=== PATIENT | female | born 1945 | race Caucasian/White ===

== ENCOUNTER 2018-04-06 10:36 | Emergency (ER) | payer SELFPAY ==
[2018-04-06] MEDS ORDERED: traMADol TAB* 50 MG PO ONE (10:56)
--- NOTE | 2018-04-06 11:02 | ED ---
Lower Extremity - HPI Summary HPI Summary: This patient is a 72 year old F presenting to [facility] accompanied by her with a chief complaint of left hip pain since 04/03/18. She denies a fall, and endorses difficulty ambulating and insomnia secondary to pain. She denies pain radiation down her leg. She states that the pain started in her left knee then travelled to her hip, but now her knee is asymptomatic. Pt denies rx blood thinners. - History of Current Complaint Chief Complaint: EDExtremityLower Stated Complaint: LT SIDE HIP PAIN Time Seen by Provider: 04/06/18 10:46 Hx Obtained From: Patient Mechanism Of Injury: Unknown Onset/Duration: Still Present Severity Initially: Moderate Severity Currently: Moderate Pain Intensity: 8 Pain Scale Used: 0-10 Numeric Timing: Constant Location: Is Discrete @ - left hip Associated Signs And Symptoms: Positive: Knee Pain - resolved, sx started in left knee. Negative: Fever Aggravating Factor(s): Ambulation Alleviating Factor(s): Nothing Able to Bear Weight: Yes - Allergies/Home Medications Allergies/Adverse Reactions: Allergies Allergy/AdvReac Type Severity Reaction Status Date / Time No Known Allergies Allergy Verified 04/06/18 10:56 PMH/Surg Hx/FS Hx/Imm Hx Endocrine/Hematology History: Denies: Hx Sickle Cell Disease GI History: Denies: Hx Ileostomy Sensory History: Denies: Hx Legally Blind, Hx Deafness Opthamlomology History: Denies: Hx Legally Blind EENT History: Denies: Hx Deafness Psychiatric History: Denies: Hx Autism, Hx Schizophrenia Infectious Disease History: No Infectious Disease History: Reports: Traveled Outside the in Last 30 Days - lives in [facility] - Family History Known Family History: Negative: Blood Disorder - Social History Occupation: Retired Lives: With Family Alcohol Use: Occasionally Substance Use Type: Reports: None Smoking Status (MU): Never Smoked Tobacco Review of Systems Positive: Other - insomnia secondary to pain. Negative: Fever Positive: no symptoms reported Positive: Arthralgia - left hip, left knee (resolved), Decreased ROM - secondary to pain All Other Systems Reviewed And Are Negative: Yes Physical Exam - Summary Physical Exam Summary: Appearance: Well appearing, no pain distress Skin: warm, dry, reflects adequate perfusion Head/face: normal Eyes: EOMI, BERYL ENT: normal Neck: supple, non-tender Respiratory: CTA, breath sounds present Cardiovascular: RRR, pulses symmetrical Abdomen: non-tender, soft Bowel: present Musculoskeletal: Tenderness over lateral aspect of left hip, strength/ROM intact Neuro: normal, sensory motor intact, A&Ox3 Triage Information Reviewed: Yes Vital Signs On Initial Exam: Initial Vitals Temp Pulse Resp BP Pulse Ox 97.2 F 87 16 146/73 96 04/06/18 10:39 04/06/18 10:39 04/06/18 10:39 04/06/18 10:39 04/06/18 10:39 Vital Signs Reviewed: Yes Diagnostics - Vital Signs Vital Signs Temp Pulse Resp BP Pulse Ox 04/06/18 10:39 97.2 F 87 16 146/73 96 - Laboratory Lab Statement: Any lab studies that have been ordered have been reviewed, and results considered in the medical decision making process. - Radiology Pelvis XR Xray Interpretation: No Acute Changes Radiology Interpretation Completed By: Radiologist - No fx of pelvis or left hip is noted. Dr. Joiner has reviewed this report. - Ultrasound No standard instances Ultrasound Interpretation: No Acute Changes Ultrasound Interpretation Completed By: Radiologist - Venous doppler LLE: No evidence for DVT is identified. Dr. Joiner has reviewed this report. Lower Extremity Course/Dx - Course Course Of Treatment: A 72-year-old F presents to the ED with a CC of left hip pain for 4 days. (+) left lateral hip pain, difficulty ambulating and insomnia secondary to pain. (-) pain radiation down leg. pain started in her left knee, then travelled to her hip, and now she is asymptomatic in her knee. A pelvis XR was (-). A LLE VD was (-). In the ED course, pt was given tramadol. - Diagnoses Differential Diagnosis/HQI/PQRI: Positive: Arthritis, Bursitis, Fracture (Closed ), Strain Provider Diagnoses: Left hip pain, Sprain of left hip Discharge - Sign-Out/Discharge Documenting (check all that apply): Patient Departure - discharge - Discharge Plan Condition: Stable Disposition: HOME Prescriptions: Cyclobenzaprine TAB* [Flexeril 10 MG TAB*] 10 mg PO BID #12 tab Diclofenac Sodium EC TAB* [Voltaren EC TAB*] 50 mg PO TID PRN #20 tab.ec MDD 3 PRN Reason: Pain Patient Education Materials: Hip Sprain (ED), Hip Pain (ED) Referrals: Dung Vasquez MD [Medical Doctor] - 1 Week Additional Instructions: Return to the emergency department of any new or worsening symptoms. - Billing Disposition and Condition Condition: STABLE Disposition: Home - Attestation Statements Document Initiated by Margi: Yes Documenting Scribe: Deshawn Perez Provider For Whom Margi is Documenting (Include Credential): Dr. Mike Joiner MD Scribe Attestation: Deshawn Stallings scrtoniaed for Dr. Mike Joiner MD on 04/06/18 at 1328. Scribe Documentation Reviewed: Yes Provider Attestation: The documentation as recorded by the Deshawn flanagan accurately reflects the service I personally performed and the decisions made by me, Dr. Mike Joiner MD
--- NOTE | 2018-04-06 11:43 | RAD ---
Indication: Left hip pain. 2 views of left hip and an AP view of the pelvis demonstrates pelvic ring to be intact. No fracture is identified. Sacroiliac joints joints are intact. IMPRESSION: No fracture of the pelvis or left hip is noted.
--- NOTE | 2018-04-06 13:09 | RAD ---
Indication: Left leg edema. Duplex Doppler sonography of the deep venous system of the left lower extremity deep venous system was performed. Bilaterally the common femoral veins appear patent and compressible. Left proximal greater saphenous vein, proximal deep femoral vein, femoral vein, popliteal vein, posterior tibial veins and peroneal veins appear patent and compressible. IMPRESSION: NO EVIDENCE OF DEEP VENOUS THROMBOSIS IS IDENTIFIED.
[2018-04-06 13:30] VITALS: BP 149/84
== END 2018-04-06 13:30 | disposition home or self-care (01) ==
LOC: ED 10:36
DX: S73.102A Unspecified sprain of left hip, initial encounter (principal); X58.XXXA Exposure to other specified factors, initial encounter; Y92.9 Unspecified place or not applicable; G47.00 Insomnia, unspecified
CPT/HCPCS: 99283; A9270-GY